=== PATIENT | female | born 1990 | race Caucasian/White ===

== ENCOUNTER 2017-04-04 22:13 | Emergency (ER) | payer SELFPAY ==
[~2017-04-04] VITALS: Ht 165.1 cm; Wt 65.8 kg
[2017-04-04 22:25] VITALS: BP 122/70
[2017-04-04] MEDS ORDERED: LAMICTAL5 MG PO (22:25)
[2017-04-04] MEDS ORDERED: LEXAPRO10 MG ORAL (22:26)
[2017-04-04] MEDS ORDERED: ALBUTEROL2.5 MG/3 M INH (22:26)
[2017-04-04 22:53] VITALS: BP 122/70
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
== END 2017-04-04 22:53 | disposition home or self-care (01) ==
LOC: EMR 22:30
DX: M79.601 Pain in right arm (principal); J45.909 Unspecified asthma, uncomplicated
CPT/HCPCS: 99283